=== PATIENT | female | born 1930 | race Caucasian/White ===

== ENCOUNTER 2018-05-03 12:54 | Observation (INO) | payer OTHER ==
[~2018-05-03] VITALS: Ht 157.5 cm; Wt 36.3 kg
[2018-05-03 13:09] VITALS: Ht 157.5 cm; Wt 36.3 kg
[2018-05-03 13:58] LABS: BASOPHIL % 0.3 % (0-2); PLATELET COUNT 289 x10^3mcL (130-400)
[2018-05-03 14:25] LABS: CALCIUM 9.1 mg/dL (8.5-10.1); CARBON DIOXIDE 28.1 mmol/L (21-32); CHLORIDE SERUM 103 mmol/L (98-107); GLUCOSE SERUM 80 mg/dL (74-106); POTASSIUM SERUM 4.7 mmol/L (3.5-5.1); SODIUM SERUM 138 mmol/L (136-145)
[2018-05-03 14:30] LABS: ALKALINE PHOSPHATASE 123 U/L (46-116); ALT/SGPT 25 U/L (14-59); AST/SGOT 21 U/L (15-37); BILIRUBIN TOTAL 0.4 mg/dL (0.20-1.00); MAGNESIUM 2.1 mg/dL (1.8-2.4)
[2018-05-03 14:32] LABS: ALBUMIN 2.9 g/dL (3.4-5.0)
[2018-05-03 18:18] VITALS: BP 157/75
[2018-05-03] MEDS ORDERED: METOPROLOL TART25 M1 PO (18:43)
[2018-05-03] MEDS ORDERED: SIMVASTATIN10 M1 PO (18:44)
[2018-05-03] MEDS ORDERED: ALENDRONATE SOD70 M2 PO (18:45)
[2018-05-03] MEDS ORDERED: SPIRIVA18 MC1 PO (18:46)
[2018-05-03] MEDS ORDERED: EPZICOM1 TAB (18:46)
[2018-05-03] MEDS ORDERED: PROVENTIL0.09 MG/A1 INH (18:46)
[2018-05-03 20:58] VITALS: BP 121/50
[2018-05-04 06:14] VITALS: BP 131/52
[2018-05-04 07:32] LABS: AST/SGOT 5 U/L (15-37)
[2018-05-04 08:30] LABS: CARBON DIOXIDE 26.7 mmol/L (21-32); CHLORIDE SERUM 104 mmol/L (98-107); GLUCOSE SERUM 77 mg/dL (74-106); POTASSIUM SERUM 4.7 mmol/L (3.5-5.1); SODIUM SERUM 139 mmol/L (136-145)
[2018-05-04 08:35] LABS: ALKALINE PHOSPHATASE 103 U/L (46-116); ALT/SGPT 20 U/L (14-59); BILIRUBIN TOTAL 0.3 mg/dL (0.20-1.00); TOTAL PROTEIN, SERUM 6.4 g/dL (6.4-8.2)
[2018-05-04 08:36] LABS: ALBUMIN 2.5 g/dL (3.4-5.0)
[2018-05-04 10:30] VITALS: BP 119/45
[2018-05-04 17:19] VITALS: BP 167/73
[2018-05-04 21:28] VITALS: BP 168/67
[2018-05-05 05:34] VITALS: BP 146/60
[2018-05-05 06:39] LABS: ALKALINE PHOSPHATASE 120 U/L (46-116); ALT/SGPT 22 U/L (14-59); AST/SGOT 16 U/L (15-37); BILIRUBIN TOTAL 0.3 mg/dL (0.20-1.00); CALCIUM 9.2 mg/dL (8.5-10.1); CARBON DIOXIDE 30.7 mmol/L (21-32); CHLORIDE SERUM 100 mmol/L (98-107); CREATININE SERUM 0.9 mg/dL (0.6-1.0); GLUCOSE SERUM 165 mg/dL (74-106); POTASSIUM SERUM 5.2 mmol/L (3.5-5.1); SODIUM SERUM 136 mmol/L (136-145); TOTAL PROTEIN, SERUM 7.5 g/dL (6.4-8.2)
[2018-05-05 06:46] LABS: ALBUMIN 2.8 g/dL (3.4-5.0)
[2018-05-05 09:06] VITALS: BP 143/61
[2018-05-05 14:31] LABS: UA SPECIFIC GRAVITY >=1.030 (1.005-1.035); microscopic required? YES; urine erythrocyte NEGATIVE (NEGATIVE)
[2018-05-05 17:01] VITALS: BP 113/53
[2018-05-05 21:44] VITALS: BP 132/52
[2018-05-06 05:00] VITALS: BP 108/69
[2018-05-06 06:31] LABS: ALKALINE PHOSPHATASE 117 U/L (46-116); ALT/SGPT 23 U/L (14-59); AST/SGOT 24 U/L (15-37); BILIRUBIN TOTAL 0.41 mg/dL (0.20-1.00); CALCIUM 8.7 mg/dL (8.5-10.1); CARBON DIOXIDE 32.8 mmol/L (21-32); CHLORIDE SERUM 102 mmol/L (98-107); CREATININE SERUM 0.8 mg/dL (0.6-1.0); GLUCOSE SERUM 117 mg/dL (74-106); SODIUM SERUM 141 mmol/L (136-145); TOTAL PROTEIN, SERUM 7.2 g/dL (6.4-8.2)
[2018-05-06 06:34] LABS: PLATELET COUNT 290 x10^3mcL (130-400)
[2018-05-06 07:20] LABS: ALBUMIN 2.5 g/dL (3.4-5.0)
[2018-05-06 09:02] VITALS: BP 140/56
[2018-05-06 11:58] LABS: BAND NEUTROPHIL 16 % (0-10); BASOPHIL 0 % (0-2); MONOCYTE 4 % (0-7); SEGMENTED NEUTROPHILS 80 % (37-75)
[2018-05-06 12:00] LABS: PLATELET MORPHOLOGY PLATELETS NORMAL
[2018-05-06 12:16] LABS: rbc morphology (normal/abnorm) ABNORMAL (NORMAL)
[2018-05-06 15:32] VITALS: BP 140/56
== END 2018-05-06 17:19 | disposition hospice, home (50) | DRG 543 ==
LOC: ED 12:54 → MU 16:23 → DU 16:23 → MU 17:13 → DU 17:34 → MU 05-04 07:01
PROVIDERS: Emergency Medicine; Internal Medicine Pulmonary Disease; ADMIT Internal Medicine
DX: M48.56XA Collapsed vertebra, not elsewhere classified, lumbar region, initial encounter for fracture (principal); J96.11 Chronic respiratory failure with hypoxia; I50.32 Chronic diastolic (congestive) heart failure; R64 Cachexia; Z68.1 Body mass index [BMI] 19.9 or less, adult; I11.0 Hypertensive heart disease with heart failure; M85.88 Other specified disorders of bone density and structure, other site; M51.16 Intervertebral disc disorders with radiculopathy, lumbar region; R26.2 Difficulty in walking, not elsewhere classified; J44.9 Chronic obstructive pulmonary disease, unspecified; F17.210 Nicotine dependence, cigarettes, uncomplicated; R13.10 Dysphagia, unspecified; E78.5 Hyperlipidemia, unspecified; F41.9 Anxiety disorder, unspecified; F32.9 Major depressive disorder, single episode, unspecified; I70.90 Unspecified atherosclerosis; Z91.19 Patient's noncompliance with other medical treatment and regimen
CPT/HCPCS: 36600; 83880; 92526-GN; 92610-GN; 97530-GP; G0378; J1644; J1885; J7042; J7620; J7626; Q0092